=== PATIENT | male | born 1975 | race Caucasian/White ===

== ENCOUNTER → 2020-01-06 | Outpatient (CLI) | payer OTHER ==
--- NOTE | 2020-01-06 13:00 | Diagnostic Imaging Report ---
EXAMINATION: THORACIC SPINE 2VW INDICATION: Back pain COMPARISON: None FINDINGS: AP and lateral images of the thoracic spine demonstrate no acute fracture. Vertebral body heights are maintained. Alignment is anatomic. Mild multilevel degenerative changes with disc space narrowing and small osteophyte formation. The visualized portions of the lungs are clear. IMPRESSION: No acute osseous injury. Mild multilevel degenerative changes. Signed by: Ema Saucedo MD on 01/06/2020 12:57 PM
== END ==
LOC: RAD 11:53
PROVIDERS: ATTEND Family Medicine
DX: M54.6 Pain in thoracic spine (principal); G89.29 Other chronic pain
CPT/HCPCS: 72070

== ENCOUNTER → 2020-01-22 | Outpatient (CLI) | payer OTHER ==
--- NOTE | 2020-01-22 11:10 | Diagnostic Imaging Report ---
MRI SPINE THORACIC WO HISTORY: Back pain COMPARISON: Thoracic spine radiographs 01/06/2020 TECHNIQUE: Sagittal T1, sagittal T2, sagittal STIR, coronal T2, and axial T2 weighted MR images of the thoracic spine were obtained. DISCUSSION: Thoracic kyphosis is preserved. There is no significant scoliosis or subluxation. Small nodular T1 hyperintense lesion in the T9 vertebral body is a benign hemangioma. No vertebral compression deformities are seen. The thoracic cord is normal in signal and morphology. Multilevel small bilateral perineural cysts are present. The paravertebral and paraspinal soft tissues are otherwise unremarkable. The thoracic discs are preserved. There is no significant canal or foraminal stenosis. IMPRESSION: 1. No acute osseous abnormality. 2. No significant disc degeneration. No significant canal or foraminal stenosis. Signed by: Dr. Maurizio Haile M.D. on 01/22/2020 11:07 AM
--- NOTE | 2020-01-22 11:19 | Diagnostic Imaging Report ---
MRI SPINE LUMBAR WO HISTORY: Back pain COMPARISON: Concurrent thoracic spine MRI TECHNIQUE: Sagittal T1, sagittal T2, sagittal STIR, axial T2, coronal T2, and axial proton density weighted images of the lumbar spine were obtained without contrast. DISCUSSION: Number of non-rib bearing lumbar vertebral bodies: 5. Alignment: Normal lordosis. No scoliosis. Vertebrae: No fractures, infection or neoplasm. 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 No additional masses or arachnoiditis. Posterior paraspinal muscles: Well preserved. No signal abnormalities. 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 There is minimal disc degeneration at L5-S1. T12-L1: Patent canal and foramina. L1-L2: Patent canal and foramina. L2-L3: Patent canal and foramina. L3-L4: Patent canal and foramina. L4-L5: Patent canal and foramina. L5-S1: Mild bilateral foraminal stenoses due to disc bulge and facet arthrosis. No significant canal stenosis. IMPRESSION: 1. Minimal L5-S1 disc degeneration without significant canal stenosis. 2. Mild bilateral L5-S1 degenerative foraminal stenoses. 3. 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 There is no significant mass effect. Further evaluation with contrast-enhanced lumbar spine MRI is recommended. Signed by: Dr. Maurizio Haile M.D. on 01/22/2020 11:16 AM
== END ==
LOC: MRI 08:46
PROVIDERS: ATTEND Family Medicine
DX: M54.42 Lumbago with sciatica, left side (principal); M54.41 Lumbago with sciatica, right side; M47.26 Other spondylosis with radiculopathy, lumbar region; M54.6 Pain in thoracic spine
CPT/HCPCS: 72146; 72148

== ENCOUNTER → 2020-01-27 | Outpatient (CLI) | payer OTHER ==
[~2020-01-27] MED LIST: GADOBENATE DIMEGLUMINE 1 ML IV ONE
--- NOTE | 2020-01-27 14:19 | Diagnostic Imaging Report ---
MRI SPINE LUMBAR W HISTORY: Small nodular cauda equina lesion COMPARISON: MRI of the lumbar spine without contrast 01/22/2020 TECHNIQUE: Axial and coronal postcontrast T1 fat sat and axial T2 weighted MR images of the lumbar spine were submitted for interpretation. DISCUSSION: Approximately 4 mm nodular lesion along the right cauda equina at the lower L3 level enhances. There is no significant mass effect. No other enhancing abnormalities in the lumbar spine. No significant changes when compared to MRI of the lumbar spine dated 01/22/2020. 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 No other enhancing abnormalities in the lumbar spine. Signed by: Dr. Maurizio Haile M.D. on 01/27/2020 2:16 PM
== END ==
LOC: MRI 12:37
PROVIDERS: ATTEND Neurological Surgery
DX: D33.4 Benign neoplasm of spinal cord (principal)
CPT/HCPCS: 72149